=== PATIENT | female | born 1985 | race Caucasian/White ===

== ENCOUNTER → 2016-10-10 | Outpatient (CLI) | payer OTHER ==
[2016-10-10 19:19] LABS: URINE APPEARANCE CLEAR (CLEAR); URINE BILIRUBIN NEG (NEG); URINE COLOR YELLOW; URINE NITRITE NEG (NEG); URINE SPECIFIC GRAVITY 1.016 (1.000-1.030); UROBILINOGEN NEG (NEG)
[2016-10-10 19:44] LABS: MANUAL MICROSCOPIC REQUIRED? NO; REVIEW REQ? NO
== END | disposition home or self-care (01) ==
LOC: C.LABSPEC 17:49
PROVIDERS: ATTEND Obstetrics & Gynecology
DX: Z34.01 Encounter for supervision of normal first pregnancy, first trimester (principal)

== ENCOUNTER → 2016-11-01 | Outpatient (CLI) | payer BC ==
[2016-11-01 14:35] LABS: BASO % 0.1 %; BASO ABS # 0.01 K/uL (0-0.2); COMPLETE YES; EOS % 0.6 %; HEMATOCRIT 37.2 % (37-47); IG% 0.2 %; LYMPH % 15.3 %; LYMPH ABS # 1.46 K/uL (1.2-3.4); MEAN CELL VOLUME 87.9 fL (80-100); MEAN CORPUSCULAR HEMOGLOBIN 31.4 pg (25-34); MEAN CORPUSCULAR HGB CONC 35.8 g/dl (32-36); MEAN PLATELET VOLUME 10.9 fL (7.4-10.4); MONO % 5.6 %; NEUT % 78.2 %; PLATELET COUNT 197 K/uL (130-400); RED BLOOD COUNT 4.23 M/uL (4.2-5.4); WHITE BLOOD COUNT 9.57 K/uL (4.8-10.8)
[2016-11-05 01:44] LABS: CHLAMYDIA TRACH RNA*** NOT DETECTED (NOT DETECTED); GC (NEIS GONORRHOEAE)RNA** NOT DETECTED (NOT DETECTED)
== END | disposition home or self-care (01) ==
LOC: C.LAB1850 13:04
PROVIDERS: ATTEND Obstetrics & Gynecology
DX: Z34.01 Encounter for supervision of normal first pregnancy, first trimester (principal)

== ENCOUNTER → 2016-12-09 | Outpatient (CLI) | payer BC ==
[2016-12-09 13:10] LABS: GTGD 50 Grams
== END | disposition home or self-care (01) ==
LOC: C.LAB1850 09:59
PROVIDERS: ATTEND Obstetrics & Gynecology
DX: Z34.02 Encounter for supervision of normal first pregnancy, second trimester (principal)

== ENCOUNTER → 2017-02-24 | Outpatient (CLI) | payer BC ==
[2017-02-24 16:07] LABS: URINE APPEARANCE CLEAR (CLEAR); URINE BILIRUBIN NEG (NEG); URINE COLOR YELLOW; URINE NITRITE NEG (NEG); URINE SPECIFIC GRAVITY 1.011 (1.000-1.030); UROBILINOGEN NEG (NEG)
[2017-02-24 16:08] LABS: MANUAL MICROSCOPIC REQUIRED? NO; REVIEW REQ? NO
== END | disposition home or self-care (01) ==
LOC: C.LAB1850 12:54
PROVIDERS: ATTEND Obstetrics & Gynecology
DX: Z34.03 Encounter for supervision of normal first pregnancy, third trimester (principal); Z3A.00 Weeks of gestation of pregnancy not specified

== ENCOUNTER → 2017-03-19 | Outpatient (CLI) | payer BC ==
[2017-03-19 13:09] LABS: HEMATOCRIT 32.6 % (37-47)
[2017-03-19 13:21] LABS: GTGD 50 Grams
== END | disposition home or self-care (01) ==
LOC: C.LAB1850 11:07
PROVIDERS: ATTEND Obstetrics & Gynecology
DX: Z34.03 Encounter for supervision of normal first pregnancy, third trimester (principal)

== ENCOUNTER → 2017-05-19 | Outpatient (CLI) | payer BC, OTHER ==
[2017-05-19 16:40] LABS: HEMATOCRIT 28.5 % (37-47); HEMOGLOBIN 9.4 g/dL (12.0-16.0); MEAN CELL VOLUME 84.8 fL (80-100); MEAN PLATELET VOLUME 9.1 fL (7.4-10.4); PLATELET COUNT 460 K/uL (130-400); RED CELL DISTRIBUTION WIDTH CV 13.7 % (11.5-14.5); RED CELL DISTRIBUTION WIDTH SD 42.2 fL (36.4-46.3); WHITE BLOOD COUNT 18.03 K/uL (4.8-10.8)
== END | disposition home or self-care (01) ==
LOC: C.LAB1850 15:33
PROVIDERS: ATTEND Obstetrics & Gynecology
DX: O86.4 Pyrexia of unknown origin following delivery (principal)

== ENCOUNTER → 2017-05-26 | Outpatient (CLI) | payer BC, OTHER ==
[~2017-05-26] MED LIST: CEPH500C2 PO; FERR1TAB23 PO; OXYC-57 PO; PRENTAB26 PO
== END | disposition home or self-care (01) ==
LOC: C.LABSPEC 13:21
PROVIDERS: ATTEND Obstetrics & Gynecology
DX: Z98.891 History of uterine scar from previous surgery (principal)

== ENCOUNTER 2017-05-28 13:59 | Emergency (ER) | payer BC, OTHER ==
[~2017-05-28] VITALS: Ht 152.4 cm; Wt 53.2 kg
[2017-05-28 14:02] VITALS: TEMP 36.7; Ht 152.4 cm; Wt 53.2 kg
[2017-05-28] MEDS ORDERED: PRENTAB26 PO (14:59)
[2017-05-28] MEDS ORDERED: OXYC-57 PO (14:59)
[2017-05-28] MEDS ORDERED: FERR1TAB23 PO (14:59)
[2017-05-28] MEDS ORDERED: OPTIRAY 320 IV PRN (15:00)
[2017-05-28 15:29] LABS: BASO % 0.3 %; BASO ABS # 0.03 K/uL (0-0.2); EOS % 1.5 %; EOS ABS # 0.14 K/uL (0-0.5); HEMATOCRIT 30.5 % (37-47); IG# 0.09 K/uL (0.00-0.02); LYMPH % 22.5 %; LYMPH ABS # 2.13 K/uL (1.2-3.4); MEAN CELL VOLUME 83.3 fL (80-100); MEAN CORPUSCULAR HEMOGLOBIN 27.3 pg (25-34); MEAN CORPUSCULAR HGB CONC 32.8 g/dl (32-36); MEAN PLATELET VOLUME 8.7 fL (7.4-10.4); MONO % 5.4 %; MONO ABS # 0.51 K/uL (0.11-0.59); NEUT % 69.3 %; NEUT ABS # 6.56 K/uL (1.4-6.5); PLATELET COUNT 777 K/uL (130-400); RED CELL DISTRIBUTION WIDTH CV 14.2 % (11.5-14.5); RED CELL DISTRIBUTION WIDTH SD 43.7 fL (36.4-46.3); WHITE BLOOD COUNT 9.46 K/uL (4.8-10.8)
[2017-05-28 15:37] LABS: CALCIUM 8.9 mg/dl (8.5-10.1); CREATININE 0.62 mg/dl (0.60-1.20); POTASSIUM 3.9 mmol/L (3.5-5.1)
--- NOTE | 2017-05-28 16:14 | DIAGNOSTIC IMAGING REPORT ---
CT OF THE NECK WITH CONTRAST CLINICAL HISTORY: SWOLLEN, PAINFUL R LYMPH NODES X 4 MONTHS COMPARISON STUDY: No previous studies for comparison. TECHNIQUE: Axial images of the neck were obtained following intravenous injection of 93 cc Optiray 320 IV. Sagittal and coronal reconstructions were viewed. FINDINGS: Visualized portions of the intracranial contents are unremarkable. Mastoid air cells are clear. Sinuses are clear. Orbits are unremarkable. Airway is patent. Epiglottis is normal. Note is made of a thick-walled multiloculated round abnormality posterior to the right submandibular gland and lateral to the right internal jugular and carotid arteries. This is anterior to the sternocleidomastoid muscle. There is mild adjacent infiltration. The largest component measures 1.9 cm. The smaller component measures 1.3 cm. In aggregate, the abnormality measures 2.6 cm. This has significant mass effect upon the right internal jugular vein which is narrowed but patent. Major vasculature of the neck is patent. Lung apices are clear. No thyroid nodules identified by CT. The parotid and submandibular glands are normal. Epiglottis is normal. There are no suspicious osseous lesions. IMPRESSION: 2.6 cm multiloculated thick-walled cystic right level 2 abnormality located adjacent to the right angle of the mandible. Resultant narrowing of the right internal jugular vein which is patent. Mild adjacent infiltration favors an infectious process. Differential considerations include suppurative lymphadenitis and infected right second brachial cleft cyst. Tuberculous adenitis/scrofula is within the differential although statistically less likely. Necrotic lymphadenopathy could appear similar although is considered less likely given infiltration and lack of discrete thyroid/mucosal lesion by CT. ENT consultation might be considered. Electronically signed by: Graeme Pfeiffer M.D. 05/28/2017 4:13 PM Dictated Date/Time: 05/28/2017 3:57 PM
[2017-05-28] MEDS ORDERED: CEPH500C2 PO (16:42)
--- NOTE | 2017-05-28 16:44 | EMERGENCY ROOM VISIT NOTE ---
History First contact with patient: 14:17 Chief Complaint: THROAT PAIN/INJURY Stated Complaint: LUMP IN THROAT, SORE History of Present Illness Patient is a 31-year-old white female who presents the emergency department accompanied by her mother and daughter for evaluation of painful swelling in the right neck times roughly 4 months. Patient reports that she has had what she thought were swollen lymph nodes in the right side of her neck for the last several months. She was and being followed by her [employer] for her , they would periodically examine her neck, and basically were just following it. She was seen by a obstetrics just 2 days ago for follow-up. The patient reports that in the last couple of weeks, the area has increased in size. In the last couple of days, the affected area has become more hard and painful to touch. The pain is now radiating toward her ear and down her neck slightly, and she states that her teeth on the right side are a bit more sensitive than normal. She is essentially done nothing for her symptoms. She has been on pain medication after her , but is taking this sparingly. She had some swollen lymph nodes in her axilla bilaterally when her breast milk came in, otherwise denies any other swollen lymph nodes, no skin rashes or lesions, no recent cold or upper respiratory symptoms and no sore throat. She rates her discomfort a 4/10. She states she could not get in with her primary care doctor until the end of next month. She reports that she had an enlarged lymph node in the left side of her neck when she was a child, which was followed and resolved on its own. She is concerned because she has a family history of several cancers. Review of Systems Review of systems as per HPI. All other systems reviewed were negative. 10 systems reviewed. Past Medical/Surgical History Medical Problems: (1) No Known Active Medical Problems Surgical Problems: (1) History of section (2) History of tonsillectomy Electronic medical records are reviewed and summarized as above/below. See Problem List. Family History FH: cancer FH: heart disease Hypertension Father and grandfather of oropharyngeal cancer, grandmother had breast cancer. Social History Smoking Status: Never Smoker Alcohol Use: none Marital Status: in relationship Housing Status: lives with family Occupation Status: employed Current/Historical Medications Scheduled Cephalexin Monohydrate (Keflex), 500 MG PO QID Ferrous Sulfate (Iron), 1 TAB PO DAILY Multivit/Min/Iron/Fol Ac/Pren ( Vitamin), 1 TAB PO DAILY Scheduled PRN Oxycodone/Acetaminophen 5MG/325MG (Percocet 5MG/325MG), 1 TABLET PO Q6H PRN for Pain Physical Exam Vital Signs Date Time Temp Pulse Resp B/P (MAP) Pulse Ox O2 Delivery O2 Flow Rate FiO2 05/28/17 16:50 85 16 118/95 99 05/28/17 14:04 99 Room Air 05/28/17 14:02 36.7 91 20 132/90 99 Room Air Physical Exam CONSTITUTIONAL: Patient is a pleasant, well-appearing 31-year-old female who is awake and alert and in no acute distress. EYES: Pupils equal, round, reactive to light and accommodation. EOMs intact without nystagmus. Sclera are anicteric. ENT: Tympanic membranes intact, with normal landmarks. External canals are clear. Oral and nasopharynx are clear. Jaw opening closes fully. No trismus. Mucous membranes are moist, no lesions, tongue and gums appear normal. NECK: No bruits auscultated. Supple with slightly tender, indurated mass on the right neck, submandibular area near the angle of the mandible. No other lymphadenopathy is appreciated. There is no erythema, increased warmth or induration consistent with cellulitis. No thyromegaly. No meningeal signs. Full active range of motion without discomfort. CARDIOVASCULAR: Regular rate and rhythm, with normal S1 and S2, no murmur or gallop or rub is heard. No carotid bruits auscultated. No JVD. Peripheral pulses easily palpable. RESPIRATORY: Breath sounds equal and clear to auscultation without wheezes, rales, or rhonchi heard. Full and equal chest expansion without accessory muscle use or retractions. INTEGUMENTARY: No lesions or rash, normal skin turgor. Medical Decision & Procedures ER Provider Diagnostic Interpretation: CT OF THE NECK WITH CONTRAST CLINICAL HISTORY: SWOLLEN, PAINFUL R LYMPH NODES X 4 MONTHS COMPARISON STUDY: No previous studies for comparison. TECHNIQUE: Axial images of the neck were obtained following intravenous injection of 93 cc Optiray 320 IV. Sagittal and coronal reconstructions were viewed. FINDINGS: Visualized portions of the intracranial contents are unremarkable. Mastoid air cells are clear. Sinuses are clear. Orbits are unremarkable. Airway is patent. Epiglottis is normal. Note is made of a thick-walled multiloculated round abnormality posterior to the right submandibular gland and lateral to the right internal jugular and carotid arteries. This is anterior to the sternocleidomastoid muscle. There is mild adjacent infiltration. The largest component measures 1.9 cm. The smaller component measures 1.3 cm. In aggregate, the abnormality measures 2.6 cm. This has significant mass effect upon the right internal jugular vein which is narrowed but patent. Major vasculature of the neck is patent. Lung apices are clear. No thyroid nodules identified by CT. The parotid and submandibular glands are normal. Epiglottis is normal. There are no suspicious osseous lesions. IMPRESSION: 2.6 cm multiloculated thick-walled cystic right level 2 abnormality located adjacent to the right angle of the mandible. Resultant narrowing of the right internal jugular vein which is patent. Mild adjacent infiltration favors an infectious process. Differential considerations include suppurative lymphadenitis and infected right second brachial cleft cyst. Tuberculous adenitis/scrofula is within the differential although statistically less likely. Necrotic lymphadenopathy could appear similar although is considered less likely given infiltration and lack of discrete thyroid/mucosal lesion by CT. ENT consultation might be considered. Laboratory Results 05/28/17 15:00 Red Blood Count 3.66, Mean Corpuscular Volume 83.3, Mean Corpuscular Hemoglobin 27.3, Mean Corpuscular Hemoglobin Concent 32.8, Mean Platelet Volume 8.7, Neutrophils (%) (Auto) 69.3, Lymphocytes (%) (Auto) 22.5, Monocytes (%) (Auto) 5.4, Eosinophils (%) (Auto) 1.5, Basophils (%) (Auto) 0.3, Neutrophils # (Auto) 6.56, Lymphocytes # (Auto) 2.13, Monocytes # (Auto) 0.51, Eosinophils # (Auto) 0.14, Basophils # (Auto) 0.03 05/28/17 15:00 Test 05/28/17 15:00 White Blood Count 9.46 K/uL (4.8-10.8) Red Blood Count 3.66 M/uL (4.2-5.4) Hemoglobin 10.0 g/dL (12.0-16.0) Hematocrit 30.5 % (37-47) Mean Corpuscular Volume 83.3 fL (80-100) Mean Corpuscular Hemoglobin 27.3 pg (25-34) Mean Corpuscular Hemoglobin Concent 32.8 g/dl (32-36) Platelet Count 777 K/uL (130-400) Mean Platelet Volume 8.7 fL (7.4-10.4) Neutrophils (%) (Auto) 69.3 % Lymphocytes (%) (Auto) 22.5 % Monocytes (%) (Auto) 5.4 % Eosinophils (%) (Auto) 1.5 % Basophils (%) (Auto) 0.3 % Neutrophils # (Auto) 6.56 K/uL (1.4-6.5) Lymphocytes # (Auto) 2.13 K/uL (1.2-3.4) Monocytes # (Auto) 0.51 K/uL (0.11-0.59) Eosinophils # (Auto) 0.14 K/uL (0-0.5) Basophils # (Auto) 0.03 K/uL (0-0.2) RDW Standard Deviation 43.7 fL (36.4-46.3) RDW Coefficient of Variation 14.2 % (11.5-14.5) Immature Granulocyte % (Auto) 1.0 % Immature Granulocyte # (Auto) 0.09 K/uL (0.00-0.02) Erythrocyte Sedimentation Rate 43 mm/hr (0-21) Anion Gap 5.0 mmol/L (3-11) Est Creatinine Clear Calc Drug Dose 96.2 ml/min Estimated GFR () 141.2 Estimated GFR (Non- 121.9 BUN/Creatinine Ratio 11.2 (10-20) Calcium Level 8.9 mg/dl (8.5-10.1) C-Reactive Protein 4.62 mg/dl (0-0.29) ED Course The patient was seen and assessed as above. Her old records were reviewed. She presents the emergency department with a progressively worsening, tender mass in the right neck. Treatment options were discussed with her as she is breast-feeding and she was agreeable to proceed. IV lock was initiated. CBC, BMP and sed rate and CRP were collected. CT scan of the soft tissue neck with IV contrast was ordered. Laboratory studies noted a normal white count 9400, she does have a left shift and bands noted. She has slight, nonspecific elevation of her sed rate and CRP at 43 and 4.62 respectively. H&H is 10 and 30, which is consistent with postop anemia from her and is improving from recent labs. Electrolytes are without significant abnormality. CT scan of the soft tissue neck with IV contrast noted a 2.6 cm multiloculated thick-walled cystic structure in the right angle of the mandible. There is some associated narrowing of the right internal jugular vein which is patent. Mild adjacent infiltration favors an infectious process including suppurative lymphadenitis or infected brachial cleft cyst. Tuberculosis adenitis/scrofula and necrotizing lymphadenopathy were felt to be less likely. Patient history, presentation and ED workup were reviewed with attending physician, and I was able to discuss the CT findings with Dr. Mccloud with ENT surgery. He did recommend coverage with antibiotics and advised that the patient would need a biopsy and could follow-up with him after the biopsy. All laboratory and diagnostic imaging studies were reviewed with the patient and her mother. She will be covered with Keflex. She was advised to follow-up with her primary care provider tomorrow by phone to notify them of her ED visit , and the need for a biopsy so that she can be seen by ENT. She expressed understanding of this and was agreeable. Differential diagnoses entertained included lymphadenopathy, abscess, cellulitis, mass or malignancy, among others. The patient was discharged home in stable condition. Medical Decision See emergency department course. Medication Reconcilliation Current Medication List: was personally reviewed by al Blood Pressure Screening Patient's blood pressure: Normal blood pressure Blood pressure disposition: Did not require urgent referral Impression Primary Impression: Mass of right side of neck Departure Information Prescriptions Cephalexin Monohydrate (KEFLEX) 500 Mg Cap 500 MG PO QID, #40 CAP Prov: Beverly Trujillo PA 05/28/17 Referrals Munira Benavides DO (PCP) Shu Mccloud M.D. Patient Instructions My [facility] Additional Instructions Cephalexin(Keflex) 500mg: Take one pill four times daily for 10 days for your skin infection. All antibiotics can cause diarrhea. If this occurs and you feel worse or it does not resolve in 1-2 days follow up with your doctor or return to the Emergency Department as this could be signs of serious underlying problems. Any medication can cause an allergic reaction, stop the pills immediately and return to the ER for rash, hives, breathing difficulties, or swelling. Ibuprofen(Motrin, Advil) may be used for fever or pain. Use 600mg every six hours as needed. Take with food. Avoid using more than 2400mg in a 24 hour period. Do not use 2400mg per day for more than three consecutive days without physician direction. Prolonged inappropriate use can lead to stomach upset or ulcers. (AND/OR) Acetaminophen(Tylenol) may be used for fever or pain. Use 1000mg every six hours as needed. Avoid using more than 3000mg in a 24 hour period. Warm compresses to the affected area 4 times daily for 15-20 minutes. Rest and drink plenty of fluids. Continue current medications. Return to the ER for severe pain, persistent fevers, spreading redness, or any worsening of your condition. Follow up with your primary physician to schedule a biopsy, and follow up with ENT after the biopsy results for further care and evaluation.
[2017-05-28 16:50] VITALS: BP 118/95; PULSE 85; O2SAT 99
== END 2017-05-28 16:51 | disposition home or self-care (01) ==
LOC: C.EDB 14:01 → C.EDD 16:51
DX: R22.1 Localized swelling, mass and lump, neck (principal); Z80.9 Family history of malignant neoplasm, unspecified; Z82.49 Family history of ischemic heart disease and other diseases of the circulatory system

== ENCOUNTER → 2017-06-20 | Outpatient (CLI) | payer BC, OTHER ==
--- NOTE | 2017-06-20 11:33 | DIAGNOSTIC IMAGING REPORT ---
ULTRASOUND-GUIDED FINE-NEEDLE ASPIRATION BIOPSY OF A RIGHT NECK MASS. CLINICAL HISTORY: Cystic level 2 mass right neck. COMPARISON STUDY: CT scan dated 05/28/2017 FINDINGS: A timeout was performed. The risks of the procedure were explained the patient and informed consent was obtained. The patient was prepped in sterile fashion. The skin was anesthetized 1% lidocaine. Under ultrasound guidance, 2 fine-needle aspiration samples were obtained from a 2 cm mass near the angle of the right hemimandible. A 25-gauge needle was utilized. There were no immediate complications. Initial pathologic review indicates satisfactory material. IMPRESSION: Successful ultrasound-guided fine-needle aspiration biopsy of a right neck mass. Electronically signed by: Mickey Rachel M.D. 06/20/2017 11:32 AM Dictated Date/Time: 06/20/2017 11:30 AM
== END | disposition home or self-care (01) ==
LOC: C.ULTR 10:16
PROVIDERS: ATTEND Family Medicine
DX: R22.1 Localized swelling, mass and lump, neck (principal); R59.0 Localized enlarged lymph nodes; L72.0 Epidermal cyst